=== PATIENT | male | born 1940 | race Caucasian/White ===

== ENCOUNTER 2018-03-26 21:15 | Inpatient (IN) | payer MEDICARE, BC ==
[2018-03-26 21:39] LABS: #Eosinphils 0.2 thou/uL (0.0-0.7); #Lymphocytes 1.9 thou/uL (1.20-3.40); #Monocytes 0.3 thou/uL (0.11-0.59); #Neutrophils 2.6 thou/uL (1.40-6.50); %Basophils 0.5 % (0.0-1.0); %Eosinophils 3.2 % (0.0-10.0); %Lymphocytes 38.8 % (21.0-51.0); %Monocytes 5.3 % (0.0-10.0); %Neutrophils 52.2 % (42.0-75.0); Hemoglobin 13.5 g/dL (14.0-18.0); Mean Corpuscular Volume 91.1 fl (80.0-94.0); Mean Platelet Volume 6.9 fL (7.4-10.4); Platelet Count 152 thou/uL (130-400); RBC Distribution Width 12.4 % (11.5-14.5); Red Blood Cell (RBC) Count 4.37 mill/uL (4.70-6.10); White Blood Cell (WBC) Count 4.9 thou/uL (4.8-10.8)
[2018-03-26 21:57] LABS: Anion Gap 13 mmol/L (10-20); BUN (Urea Nitrogen) 23 mg/dL (8.4-25.7); Calc. Creatinine Clearance 0 mL/min (70-130); Calcium 9.2 mg/dL (7.8-10.44); Carbon Dioxide 26 mmol/L (23-31); Chloride 105 mmol/L (98-107); Estimated GFR-MDRD 64; Glucose 158 mg/dL (83-110); Potassium 3.9 mmol/L (3.5-5.1); Sodium 140 mmol/L (136-145)
[2018-03-26 22:03] LABS: CKMB 3.6 ng/mL (0-6.6); Troponin I 0.025 ng/mL (< 0.028)
--- NOTE | 2018-03-26 22:38 | RAD ---
PORTABLE UPRIGHT FRONTAL CHEST RADIOGRAPH: 03/26/2018 HISTORY: Chest pain. Angina. COMPARISON: 01/02/2012 FINDINGS: Midline sternotomy wires are present. The cardiac silhouette appear enlarged. There is no pneumotho rax, pleural fluid, lobar consolidation, or alveolar edema. IMPRESSION: No acute findings. POS: [facility]
[2018-03-26] MEDS ORDERED: Diabetic Tussin 200 MG/10 ML UDCUP PO PRN (23:13)
[2018-03-26] MEDS ORDERED: Mag-Al 1200 mg/1200 mg/30 ML UDCUP PO PRN (23:13)
[2018-03-26] MEDS ORDERED: Acetaminophen 325 MG TAB PO PRN (23:13)
[2018-03-26] MEDS ORDERED: Calcium Carbonate 500 MG ChewTAB PO PRN (23:13)
[2018-03-26] MEDS ORDERED: hydrALAZINE 20 MG/ML VIAL SLOW IVP PRN (23:13)
[2018-03-26] MEDS ORDERED: Benzonatate 100 MG CAP PO PRN (23:13)
[2018-03-26] MEDS ORDERED: Senokot 8.6 MG TAB PO PRN ×2 (23:13)
[2018-03-26] MEDS ORDERED: Loratadine 10 MG TAB PO PRN (23:13)
[2018-03-26] MEDS ORDERED: Nitroglycerin 0.4 MG TAB (25 Tab Bottle) SL PRN (23:13)
[2018-03-26] MEDS ORDERED: traMADol HCl 50 MG TAB PO PRN (23:13)
[2018-03-26] MEDS ORDERED: cloNIDine 0.1 MG TAB PO PRN (23:13)
[2018-03-26] MEDS ORDERED: Ondansetron PF 4 MG/2 ML Vial IVP PRN (23:13)
[2018-03-26] MEDS ORDERED: Bisacodyl 5 MG TAB PO PRN ×2 (23:13)
[2018-03-27 00:58] VITALS: BMI 32.7
[2018-03-27 01:24] LABS: Troponin I 0.021 ng/mL (< 0.028)
--- NOTE | 2018-03-27 03:41 | HP ---
DATE OF ADMISSION: 03/26/2018 CHIEF COMPLAINT: Chest pain. PRIMARY CARE PHYSICIAN: Marlon Espinal M.D. HISTORY OF PRESENT ILLNESS: Mr. Fragoso is a very pleasant 77-year-old male with past medical history of coronary artery disease and prostate cancer who presented to the emergency room with above-mention ed complaint. History is mainly obtained by the patient himself and case has been discussed with [facility] room physician. Mr. Fragoso reports that he is a patient of Dr. [facility] and has regular foll ow up done and is compliant with his medications. He has had coronary artery bypass graft 8 years ag o and had a heart attack one week after that requiring stenting. Since then, he has had one more blo od vessel stented and was told that there is one more blood vessel that needed to be operated upon ve rsus needed a stent on, he is not sure. He reports that he was seen by Dr. Finn's office 2 week s ago and has had multiple echos done in the recent past. He has been stable on the medical manageme nt and was given option to get the last blood vessel stented; but is not sure if he really wants to g et it done or not. Today, he presented to the ER with complaints of chest pain which was quite severe in nature, located in the center of the chest. He describes it as a 7-8/10 in intensity and it was associated with merlene rtness of breath, palpitation, diaphoresis, and some nausea. He reports compliance to his medication s. He denies any other signs and symptoms or any other recent illnesses. He denies daily symptoms. He tried nitroglycerin at home which subsequently help to ease his pain. In the emergency room upon presentation, he was hemodynamically stable. His initial workup included cardiac enzymes, which were normal and 12-lead EKG, which also did not show any acute ST or T-wave ch anges. He was also given aspirin by the EMS and is now being admitted with a presumptive diagnosis o f chest pain, possibly unstable angina. PAST MEDICAL HISTORY: 1. History of coronary artery disease, status post CABG 8 years ago and stenting 1 week after that. 2. History of prostate cancer, status post surgery. 3. History of gastroesophageal reflux disease. 4. History of herniated disk, status post lower back surgery. PAST SURGICAL HISTORY: 1. History of lower back surgery. 2. Radical prostatectomy about 20 years ago. 3. History of EGD. 4. History of Yolanda fundoplication. 5. History of hernia repair. ALLERGIES: No known medication allergies. FAMILY HISTORY: Significant for dad having a lung cancer in his 15 and dying from it. He was a heav y smoker and drinker. His mother had pancreatic cancer when she was 71. One of his sisters is also a diabetic. SOCIAL HISTORY: He denies any drug, tobacco or alcohol abuse. CURRENT MEDICATIONS: Aspirin 81 mg daily, testosterone 100 mg IM every 28 days, Crestor 20 mg daily, Ranexa 1000 mg p.o. b.i.d., multivitamin daily, and Lexapro 20 mg daily. REVIEW OF SYSTEMS: The following complete review of systems was negative, unless otherwise mentioned in the HPI or below: Constitutional: Weight loss or gain, ability to conduct usual activities. Sk in: Rash, itching. Eyes: Double vision, pain. ENT/Mouth: Nose bleeding, neck stiffness, pain, te nderness. Cardiovascular: Palpitations, dyspnea on exertion, orthopnea. Respiratory: Shortness of breath, wheezing, cough, hemoptysis, fever or night sweats. Gastrointestinal: Poor appetite, abdom inal pain, heartburn, nausea, vomiting, constipation, or diarrhea. Genitourinary: Urgency, frequenc y, dysuria, nocturia. Musculoskeletal: Pain, swelling. Neurologic/Psychiatric: Anxiety, depressio n. Allergy/Immunologic: Skin rash, bleeding tendency. It is negative except for those mentioned in the history and physical. LABORATORY DATA: CBC is unremarkable. Serum chemistry shows blood sugar of 158. CK-MB and troponin within normal limit. BNP slightly elevated to 107.5. Chest x-ray by my review has no evidence to s uggest pulmonary infiltrate, edema or effusion. A 12-lead EKG reportedly is unremarkable. It is not available for my review at this time. PHYSICAL EXAMINATION: VITAL SIGNS: Blood pressure 114/61 with repeat blood pressure of 158/84, temperature 97.8, pulse of 66, respirations 18, and saturating 96% on room air. GENERAL: No acute distress, awake, alert, oriented x3. HEENT: Mucous membrane is moist and pink. No oropharyngeal exudate or erythema. Head is normocepha lic, atraumatic. Pupils are equal, reactive to light and accommodation. Extraocular movement intact . NECK: Supple without any lymphadenopathy, JVD or bruit. CHEST: Clear to auscultation without any wheezing, rales or rhonchi. CARDIOVASCULAR: Rate and rhythm is regular without any murmur, rubs or gallops. ABDOMEN: Soft, nontender, nondistended with positive bowel sounds. EXTREMITIES: Free of any cyanosis, clubbing, or edema. NEUROLOGIC: Nonfocal. SKIN: Free of any rashes or bruises. Feels warm and dry to touch. PSYCHIATRIC: Normal affect. IMPRESSION AND PLAN: 1. Chest pain, likely unstable angina. At this time, the patient might need to undergo the stenting of the remaining blood vessel that he reports is blocked. I do not have the results of his most rec ent cardiac catheterization or echocardiogram. We will request consultation from Dr. Finn's off ice for getting his results from his office as well as for further recommendations. At this time, he does not have any cardiac enzyme elevation and no changes in his EKG. We will hold off on any antip latelet or anticoagulant therapy at this time and continue to trend serial cardiac enzymes. He will be admitted to monitored unit under observation status. Further management will depend upon the ruby mmendations from Cardiology. At this time, we will avoid getting a stress test as he most likely is having unstable angina. We will continue him on a full dose of aspirin and restart his Crestor and R anexa. I am not sure why he not on any RAYMOND inhibitor or ARB as well as a beta-radha. Most likely he might be intolerant because of the low blood pressure. If his blood pressure permits; we will sta rt him on a low dose beta-radha. 2. History of coronary artery disease, status post coronary artery bypass graft and stenting. Once again, continue full dose aspirin and restart his statin. Continue Ranexa for now. If the blood pre ssure allows, please consider adding low dose beta-radha and RAYMOND inhibitor. The patient is relucta nt to get a repeat echocardiogram as it was recently done. We will try to get the results of his mos t recent echo from cardiology's office. 3. History of prostate cancer. He is currently in remission. 4. Add deep venous thrombosis and gastrointestinal prophylaxis. 5. Add p.r.n. medications. 6. Code status: FULL CODE. Discussed with the patient. DISPOSITION: Mr. Fragoso is currently being admitted for chest pain, possibly unstable angina. Furthe r management will depend upon his clinical course and Cardiology recommendations.
[2018-03-27 04:23] LABS: #Basophils 0.1 thou/uL (0.0-0.2); #Eosinphils 0.1 thou/uL (0.0-0.7); #Lymphocytes 1.4 thou/uL (1.20-3.40); #Monocytes 0.3 thou/uL (0.11-0.59); #Neutrophils 3.3 thou/uL (1.40-6.50); %Basophils 1.2 % (0.0-1.0); %Eosinophils 1.5 % (0.0-10.0); %Lymphocytes 27.6 % (21.0-51.0); %Monocytes 6.5 % (0.0-10.0); %Neutrophils 63.3 % (42.0-75.0); Mean Corpuscular Hemoglobin 31.7 pg (27.0-31.0); Mean Corpuscular Volume 90.6 fl (80.0-94.0); Mean Platelet Volume 6.7 fL (7.4-10.4); Platelet Count 142 thou/uL (130-400); RBC Distribution Width 12.4 % (11.5-14.5); White Blood Cell (WBC) Count 5.2 thou/uL (4.8-10.8)
[2018-03-27 04:31] LABS: Anion Gap 11 mmol/L (10-20); BUN (Urea Nitrogen) 21 mg/dL (8.4-25.7); Calc. Creatinine Clearance 101 mL/min (70-130); Calcium 9.3 mg/dL (7.8-10.44); Carbon Dioxide 24 mmol/L (23-31); Chloride 107 mmol/L (98-107); Estimated GFR-MDRD Greater than 90; Glucose 104 mg/dL (83-110); Potassium 4.1 mmol/L (3.5-5.1); Sodium 138 mmol/L (136-145)
[2018-03-27 05:01] LABS: Troponin I 0.014 ng/mL (< 0.028)
[2018-03-27] MEDS: Aspirin 325 mg Enteric Coated Tablet PO SCH (10:07)
[2018-03-27] MEDS: Famotidine 20 MG TAB PO SCH ×2 (10:08→21:08)
[2018-03-27] MEDS: Multivitamin W/ Minerals 1 TAB PO SCH (10:08)
[2018-03-27] MEDS: Enoxaparin Sodium 40 MG/0.4 ML SYRINGE SC SCH (10:08)
[2018-03-27] MEDS: Rosuvastatin 20 MG TAB PO SCH (10:09)
[2018-03-27] MEDS ORDERED: Iopamidol 370 76% 100 ML VIAL ONE (12:59)
[2018-03-27] MEDS ORDERED: Lidocaine 1% (PF) 30 ML VIAL ONE (16:28)
--- NOTE | 2018-03-27 16:47 | EKG ---
Test Reason : C/O CHEST PAIN Blood Pressure : / mmHG Vent. Rate : 049 BPM Atrial Rate : 049 BPM P-R Int : 292 ms QRS Dur : 100 ms QT Int : 484 ms P-R-T Axes : 070 -09 006 degrees QTc Int : 437 ms Marked sinus bradycardia with sinus arrhythmia with 1st degree A-V block Inferior infarct (cited on or before 14-APR-1997) Abnormal ECG When compared with ECG of 26-MAR-2018 21:22, (Unconfirmed) No significant change was found Confirmed by DR. Vitaliy BEAVERS ([id number]) on 03/27/2018 4:47:08 PM Referred By: FRANSICO Confirmed By:DR. Vitaliy BEAVERS
--- NOTE | 2018-03-27 17:29 | CON ---
DATE OF CONSULTATION: 03/27/2018 REASON FOR CONSULTATION: Recurrent chest pain. HISTORY OF PRESENT ILLNESS: Mr. Fragoso is a very pleasant 77-year-old gentleman whom I have seen and evaluated in the past. He has a history of CAD status post bypass surgery. He has been evaluated wi th last angio performed in 2011. He had severe stenosis of the distal LAD into the proximal portion of the diagonal branch. There is a diagonal branch that was not covered by bypass graft. He did hav e saphenous vein graft to the OM in addition to the saphenous vein graft to the right that was patent . MARIO to the LAD was also patent. I decided to treat Mr. Fragoso medically at that time. There was heavy calcification and would likely benefit from rotablader if ever needed. He has been treated medically over the last several years and has done well. Recently, he had an acu te onset of chest pain while at home. He states he was arguing with his . He took several nitro glycerins with some relief. By the time he got to the emergency room, his symptoms were resolved. H is CK and troponin were negative. His EKG was also felt to be nonspecific. After my initial evaluat ion, Mr. Fragoso felt he was good enough to go home given negative troponins and negative EKG. He then on getting ready for discharge had another episode of chest pain. He took his home nitroglycerin as his blood pressure decreased to 60/40. He became diaphoretic. He was given IV fluids with improvem ent. PAST MEDICAL HISTORY: As above including prostate cancer, acid reflux, herniated disk, Yolanda fundop lication, prostatectomy. ALLERGIES: None. SOCIAL HISTORY: No current tobacco or alcohol use. He is very active. HOME MEDICATIONS: Include aspirin, testosterone, multivitamin, Lexapro, Ranexa, Crestor. REVIEW OF SYSTEMS: Ten-point review of systems is reviewed and as above, otherwise negative. PHYSICAL EXAMINATION: GENERAL: Patient is a pleasant male who is in no acute distress. The patient appears his stated age . VITAL SIGNS: Blood pressure 130/54, pulse 84, temperature 97.8. NEUROLOGIC: The patient is alert and oriented times 3 with no focal neurologic deficits. HEENT: Sclerae without icterus. Mouth has moist mucous membranes with normal pallor. NECK: No JVD. Carotid upstroke brisk. No bruits bilaterally. LUNGS: Clear to auscultation with unlabored respirations. BACK: No scoliosis or kyphosis. CARDIAC: Regular rate and rhythm with normal S1 and S2. No S3 or S4 noted. No significant rubs, mu rmurs, thrills, or gallops noted throughout the precordium. PMI is not displaced. There is no eliceo ternal heave. ABDOMEN: Soft, nontender, nondistended. No peritoneal signs present. No hepatosplenomegaly. No ab normal striae. EXTREMITIES: 2+ femoral and 2+ dorsalis pedis pulses. No cyanosis, clubbing, or edema. SKIN: No gross abnormalities. PERTINENT LABORATORY DATA: Hemoglobin 14, white blood cell count 5.2, platelet count of 142, and cre atinine 0.82. IMPRESSION: 1. Recurrent chest pain. 2. Coronary artery disease. 3. Status post bypass surgery. RECOMMENDATIONS: At this point, I would recommend coronary angiography with possible PCI. I discus sed the procedure in full detail with [place]. The risks of the procedure were also discussed. Th e risks of the procedure include but are not limited to the following: , stroke, [place], need for e mergency surgery, loss of limb, bleeding, and infection, as well as a reaction to the dye causing kid cindy failure and needing long-term dialysis. I also discussed the risks of PCI to include all of the above including coronary dissection and perforation in addition to acute stent thrombosis and resteno sis. All questions answered. Given the above, the patient agreed to proceed with procedure. Furthe r recommendations depending the above.
[2018-03-27] MEDS ORDERED: Nitroglycerin 0.4 MG TAB (25 Tab Bottle) SL PRN (17:37)
[2018-03-27] MEDS ORDERED: traMADol HCl 50 MG TAB PO PRN (17:37)
[2018-03-27] MEDS ORDERED: Acetaminophen/Codeine 30-300mg Tablet PO PRN ×2 (17:37)
[2018-03-27] MEDS ORDERED: Sodium Chloride 0.9% 200 ML IV PRN (17:45)
--- NOTE | 2018-03-27 18:54 | PDOC.PN ---
- Subjective Encounter Start Date: 03/27/18 Encounter Start Time: 09:45 Subjective: pt up in bed no complains - Objective Vital Signs & Weight: Vital Signs (12 hours) Temp Pulse Resp BP BP Pulse Ox 03/27/18 18:00 97.9 F 72 18 146/74 H 146/74 H 97 I&O: 03/26/18 03/27/18 03/28/18 06:59 06:59 06:59 Intake Total 250 Balance 250 Result Diagrams: 03/27/18 04:00 03/27/18 04:00 Phys Exam - Physical Examination HEENT: PERRLA, moist MMs, sclera anicteric, TM's clear, oral pharynx no lesions , 2+ tonsils Neck: no nodes, no JVD, supple, full ROM Respiratory: no wheezing, no rales, no rhonchi, wheezing present, clear to auscultation bilateral Cardiovascular: RRR, no significant murmur, no rub, gallop, irregular Gastrointestinal: soft, non-tender, no distention, positive bowel sounds Musculoskeletal: no edema, pulses present, edema present Dx/Plan - Plan 1) unstable angina 2) CAD 3) HTn 4) prostate cancer plan: pt's trop were negative, no significant ekg changes. Pt on my evaluation did not have any chest pain but nurse called me and stated he was having chest pressure. will continue pt's meds. pt will go for cardiac cath. * . Review of Systems - Review of Systems Eyes: negative: Pain, Vision Change, Conjunctivae Inflammation, Eyelid Inflammation, Redness, Other ENT: negative: Ear Pain, Ear Discharge, Nose Pain, Nose Discharge, Nose Congestion, Mouth Pain, Mouth Swelling, Throat Pain, Throat Swelling, Other Respiratory: negative: Cough, Dry, Shortness of Breath, Hemoptysis, SOB with Excertion, Pleuritic Pain, Sputum, Wheezing Cardiovascular: negative: chest pain, palpitations, orthopnea, paroxysmal nocturnal dyspnea, edema, light headedness, other Gastrointestinal: negative: Nausea, Vomiting, Abdominal Pain, Diarrhea, Constipation, Melena, Hematochezia, Other Genitourinary: negative: Dysuria, Frequency, Incontinence, Hematuria, Retention , Other - Medications/Allergies Allergies/Adverse Reactions: Allergies Allergy/AdvReac Type Severity Reaction Status Date / Time No Known Drug Allergies Allergy Verified 03/27/18 00:44 Medications: Current Medications Acetaminophen (Tylenol) 650 mg PO Q4H PRN PRN Reason: Headache/Fever or Pain Acetaminophen/Codeine Phosphate (Tylenol #3) 1 tab PO Q4H PRN PRN Reason: Mild Pain (1-3) Acetaminophen/Codeine Phosphate (Tylenol #3) 2 tab PO Q4H PRN PRN Reason: Moderate Pain (4-6) Al Hydroxide/Mg Hydroxide (Maalox) 30 ml PO Q6H PRN PRN Reason: Heartburn or Indigestion Aspirin (Ecotrin) 325 mg PO DAILY [facility] Last Admin: 03/27/18 10:07 Dose: Not Given Benzonatate (Tessalon) 100 mg PO Q4H PRN PRN Reason: Cough Bisacodyl (Dulcolax) 10 mg PO DAILYPRN PRN PRN Reason: Constipation Calcium Carbonate (Tums) 1,000 mg PO Q4H PRN PRN Reason: Heartburn or Indigestion Clonidine (Catapres) 0.1 mg PO Q4H PRN PRN Reason: Systolic BP > 160 Enoxaparin Sodium (Lovenox) 40 mg SC 0900 [facility] Last Admin: 03/27/18 10:08 Dose: Not Given Escitalopram Oxalate (Lexapro) 20 mg PO HS [facility] Famotidine (Pepcid) 20 mg PO BID [facility] Last Admin: 03/27/18 10:08 Dose: Not Given Guaifenesin (Robitussin Sf) 200 mg PO Q4H PRN PRN Reason: Cough Hydralazine HCl (Apresoline) 10 mg SLOW IVP Q4H PRN PRN Reason: Systolic BP > 170 Sodium Chloride (Normal Saline 0.9%) 200 mls @ 0 mls/hr IV ONE PRN; As Directed PRN Reason: Bolus PRN SBP < 90 mm Hg Stop: 03/28/18 03:46 Iron/Minerals/Multivitamins (Theragran M) 1 tab PO DAILY [facility] Last Admin: 03/27/18 10:08 Dose: Not Given Loratadine (Claritin) 10 mg PO DAILYPRN PRN PRN Reason: Sinus Symptoms Nitroglycerin (Nitrostat) 0.4 mg SL Q5MIN PRN PRN Reason: Chest Pain Last Admin: 03/27/18 14:55 Dose: 0.4 mg Nitroglycerin (Nitrostat) 0.4 mg SL Q5MIN PRN PRN Reason: Chest Pain Ondansetron HCl (Zofran) 4 mg IVP Q6H PRN PRN Reason: Nausea/Vomiting Ranolazine (Ranexa) 1,000 mg PO BID [facility] Last Admin: 03/27/18 10:08 Dose: Not Given Rosuvastatin Calcium (Crestor) 20 mg PO DAILY [facility] Last Admin: 03/27/18 10:09 Dose: Not Given Senna (Senokot) 2 tab PO HSPRN PRN PRN Reason: Constipation Testosterone Cypionate (Depo-Testosterone) 100 mg IM Q28D [facility] Tramadol HCl (Ultram) 50 mg PO Q6H PRN PRN Reason: Moderate Pain (4-6)
[2018-03-27] MEDS ORDERED: Escitalopram Oxalate 20 mg Tablet PO SCH (21:00)
[2018-03-28 00:20] VITALS: TEMP 98.1
[2018-03-28] MEDS: Enoxaparin Sodium 40 MG/0.4 ML SYRINGE SC SCH (08:05)
[2018-03-28] MEDS: Aspirin 325 mg Enteric Coated Tablet PO SCH (08:05)
[2018-03-28] MEDS: Multivitamin W/ Minerals 1 TAB PO SCH (08:05)
[2018-03-28] MEDS: Rosuvastatin 20 MG TAB PO SCH (08:06)
[2018-03-28] MEDS: Famotidine 20 MG TAB PO SCH (08:06)
[2018-03-28 08:18] VITALS: BP 119/65
--- NOTE | 2018-03-28 09:24 | PRG ---
DATE OF SERVICE: 03/28/2018 SUBJECTIVE: Mr. Fragoso is doing well. No recurrent episodes of chest pain. PHYSICAL EXAMINATION: VITAL SIGNS: Blood pressure 119/65, pulse 60, temperature 98.1. LUNGS: Clear to auscultation. HEART: Regular rate and rhythm. ABDOMEN: Soft, nontender and nondistended. EXTREMITIES: No edema. IMPRESSION: 1. Angina. 2. Severe coronary artery disease. 3. Status post bypass surgery. RECOMMENDATIONS: I again reviewed Mr. Fragoso till this morning. There are multiple areas of potentia l source of his current pain. Most areas are small and not amenable for percutaneous intervention. I did review LAD once again. This is felt to be moderate in nature. He has severe disease present o f the ostium of the LAD with an uncovered diagonal branch. At this point, we will continue with medi mary ellen therapy. If he continues to have symptoms, may consider workup in [place] for atherectomy to the ostium of the LAD. Again, he does have severe small vessel disease, presence of ramus branch, OM br anch, circumflex artery in addition to diagonal branches. It would be okay from my standpoint to dis charge home with close outpatient followup.
--- NOTE | 2018-03-28 13:13 | DIS ---
DATE OF ADMISSION: 03/27/2018 DATE OF DISCHARGE: 03/28/2018 DISCHARGE DIAGNOSES: 1. Angina. 2. Severe coronary artery disease, status post bypass. 3. Prostate cancer. HOSPITAL COURSE: The patient is a very pleasant 77-year-old male, [facility]. Patient had troponins x3, which were negative. The patient was seen by Angie alfonso given his history of coronary artery disease and bypass. No significant EKG changes either. Aria hubbard was initially discharged by Cardiology. However, upon discharge, the patient started having s ignificant chest discomfort, and at that time, the patient was given a nitro and dropped his blood pr essures. The patient recovered without any issues. At that time, Cardiology was reconsulted and mariposa acosta underwent a cardiac catheterization by Cardiology. Cardiac catheterization did not require any intervention. Catheterization indicated most areas are small and not amenable for percutaneous inter vention. Recommended that the patient has severe disease of the ostium of the LAD with an uncovered diagonal branch. Recommended to continue medical therapy. If patient's symptoms continue to worsen, they would recommend him to going to [place] for atherectomy to the ostium of the LAD. The patient will be discharged home. FOLLOWUP: Follow up with PCP and Cardiology as outpatient. DISCHARGE MEDICATIONS: His medications are as following, 1. Aspirin 81 mg daily. 2. Crestor 20 mg daily. 3. Ranexa 1000 mg p.o. b.i.d. 4. Citalopram 20 mg at bedtime. 5. Multivitamin 1 p.o. daily. PHYSICAL EXAMINATION: VITAL SIGNS: Temperature of 98.1, 60, 20, 95% on room air, blood pressure 119/65. GENERAL: Awake, alert, oriented x3, does not appear in distress. CARDIOVASCULAR: S1 and S2 present. No murmurs, rubs, or gallops. LUNGS: Clear to auscultation, no rhonchi or wheezes noted. ABDOMEN: Soft, nontender. Bowel sounds are positive x2. EXTREMITIES: No edema.
--- NOTE | 2018-05-12 15:30 | EKG ---
Test Reason : Blood Pressure : / mmHG Vent. Rate : 055 BPM Atrial Rate : 055 BPM P-R Int : 312 ms QRS Dur : 108 ms QT Int : 462 ms P-R-T Axes : 083 -06 -17 degrees QTc Int : 441 ms Poor data quality, interpretation may be adversely affected Sinus bradycardia with sinus arrhythmia with 1st degree A-V block Abnormal ECG Confirmed by RAF ARMSTRONG ([id number]), index editor SANGEETA MENDOZA ([id number]) on 05/12/2018 3:30:44 PM Referred By: Confirmed By:RAF ARMSTRONG
== END 2018-03-28 11:23 | disposition home or self-care (01) | DRG 287 ==
LOC: ERS 21:15 → 2SW 22:57 → OBSVTOIN 03-27 15:39
PROVIDERS: ADMIT Internal Medicine; ATTEND Internal Medicine
PROC: 4A023N7 Measurement of Cardiac Sampling and Pressure, Left Heart, Percutaneous Approach (ICD-10-PCS; principal; 2018-03-27)
PROC: B2111ZZ Fluoroscopy of Multiple Coronary Arteries using Low Osmolar Contrast (ICD-10-PCS; 2018-03-27)
PROC: B2151ZZ Fluoroscopy of Left Heart using Low Osmolar Contrast (ICD-10-PCS; 2018-03-27)
DX: I25.110 Atherosclerotic heart disease of native coronary artery with unstable angina pectoris (principal); Z85.46 Personal history of malignant neoplasm of prostate; Z95.1 Presence of aortocoronary bypass graft; K21.9 Gastro-esophageal reflux disease without esophagitis; Z90.79 Acquired absence of other genital organ(s); Z79.82 Long term (current) use of aspirin; Z79.899 Other long term (current) drug therapy
CPT/HCPCS: 36415; 71045; 76942; 80048; 82553; 83880; 84484; 85025; 93005; 93010; 93455; 93798; 94760; C1769; J1644; J1650; J2001

== ENCOUNTER 2018-04-01 21:37 | Observation (INO) | payer MEDICARE, BC ==
[2018-04-01 22:14] LABS: #Lymphocytes 1.1 thou/uL (1.20-3.40); #Monocytes 0.9 thou/uL (0.11-0.59); %Basophils 0.1 % (0.0-1.0); %Eosinophils 0.3 % (0.0-10.0); %Lymphocytes 9.9 % (21.0-51.0); %Monocytes 8.1 % (0.0-10.0); %Neutrophils 81.6 % (42.0-75.0); Hemoglobin 12.8 g/dL (14.0-18.0); Mean Corpuscular HGB CONC 34.9 g/dL (32.0-36.0); Mean Corpuscular Hemoglobin 31.4 pg (27.0-31.0); Mean Platelet Volume 6.5 fL (7.4-10.4); Platelet Count 226 thou/uL (130-400); RBC Distribution Width 12.2 % (11.5-14.5); Red Blood Cell (RBC) Count 4.08 mill/uL (4.70-6.10); White Blood Cell (WBC) Count 11.1 thou/uL (4.8-10.8)
--- NOTE | 2018-04-01 22:21 | RAD ---
UPRIGHT PORTABLE CHEST ONE VIEW: HISTORY: A 77-year-old male with a history of chest pain for one week. COMPARISON: 03/26/2018 FINDINGS: There is cardiomegaly. There are some minimal linear and parenchymal changes in both bases, slightly more marked than on the prior study, raising concern for some minimal subsegmental atelectasis. No confluent pneumonia or overt edema. Atherosclerosis of the aorta. IMPRESSION: Postoperative midline sternotomy and cardiomegaly. Minimal linear and parenchymal changes in the radha g bases, new from prior study, probably mild subsegmental atelectasis. No evidence of pneumonia, kaylin ma, or other acute process. POS: [facility]
[2018-04-01 22:39] LABS: ALT (SGPT) 69 U/L (8-55); AST (SGOT) 17 U/L (5-34); Albumin 3.6 g/dL (3.4-4.8); Alkaline Phosphatase 87 U/L (40-150); Anion Gap 13 mmol/L (10-20); BUN (Urea Nitrogen) 16 mg/dL (8.4-25.7); Bilirubin, Total 0.9 mg/dL (0.2-1.2); Calc. Creatinine Clearance 0 mL/min (70-130); Calcium 9.1 mg/dL (7.8-10.44); Carbon Dioxide 24 mmol/L (23-31); Chloride 100 mmol/L (98-107); Estimated GFR-MDRD 78; Glucose 119 mg/dL (83-110); Lipase 14 U/L (8-78); Potassium 4.2 mmol/L (3.5-5.1); Protein, Total 6.6 g/dL (5.8-8.1); Sodium 133 mmol/L (136-145)
[2018-04-01 22:44] LABS: CKMB 0.7 ng/mL (0-6.6); Troponin I 0.017 ng/mL (< 0.028)
--- NOTE | 2018-04-01 22:56 | ULT ---
GALLBLADDER ULTRASOUND: HISTORY: A 77-year-old male with a history of abdominal pain. FINDINGS: Liver echogenicity is within normal limits. The gallbladder is dilated and markedly distended with e xtensive sludge and possibly additional small stones. There is some gallbladder wall thickening and some pericholecystic fluid. Very positive Morgan sign. The common bile duct is 0.5 cm. The visuali zed right kidney and pancreas are unremarkable. IMPRESSION: Very markedly abnormal gallbladder, which is distended and dilated, filled with sludge and possibly s mall stones, with gallbladder wall thickening and pericholecystic fluid and a positive Morgan sign, e vident for acute cholecystitis. POS: [facility]
[2018-04-01] MEDS ORDERED: Piperacillin/Tazobactam 3.375 GM VIAL ONE (23:15)
[2018-04-01] MEDS ORDERED: Fentanyl 100 MCG/2 ML VIAL ONE (23:55)
[2018-04-02 00:04] LABS: Bilirubin Small (Negative); Blood, Urine Negative (Negative); Clarity CLOUDY (Clear); Glucose, Urine (Dipstick) Negative (Negative); Leukocyte Small (Negative); Nitrite Positive (Negative); Protein, Urine (Dipstick) 30 mg/dL (Neg-Trace); Specific Gravity, Urine 1.037 (1.002-1.036); pH, Urine 5.5 (5.0-9.0)
[2018-04-02 00:07] LABS: Bacteria/HPF None Seen HPF (None Seen)
[2018-04-02 00:09] LABS: Pathc Cast-AUWi Flag 11.05 (0-2.49)
[2018-04-02 00:20] LABS: Hyaline Casts/LPF 0-3 HYALINE CAST LPF (0-3 Hyaline); Other Casts/LPF None Seen LPF (0-3 Hyaline); Oval Fat Bodies/HPF None Seen HPF (None Seen); RBC/HPF 0-3 HPF (0-3); Renal Epithelial None Seen HPF (0-3); Sperm/HPF None Seen HPF (None Seen); Transitional Epithelial NONE SEEN HPF (0-3); Trichomonas/HPF None Seen HPF (None Seen); Yeast-All Forms None Seen HPF (None Seen)
[2018-04-02 01:37] VITALS: BMI 32.2
[2018-04-02] MEDS ORDERED: Lactated Ringer's 1,000 ML IV SCH ×2 (01:45→07:04)
[2018-04-02] MEDS: Fentanyl 100 MCG/2 ML VIAL SLOW IVP PRN ×3 (02:09→07:56)
[2018-04-02] MEDS ORDERED: Piperacillin/Tazobactam 3.375 GM in Sodium Chloride 0.9% 100 ML IVPB SCH (06:00)
[2018-04-02] MEDS ORDERED: Ketorolac Tromethamine 30 MG/ML VIAL IVP PRN (07:02)
[2018-04-02] MEDS ORDERED: Acetaminophen 1,000 MG in Premix Bag 1 BAG IVPB PRN (07:02)
[2018-04-02] MEDS ORDERED: Ketorolac Tromethamine 30 MG/ML VIAL IVP SCH (07:30)
[2018-04-02] MEDS ORDERED: Acetaminophen 1,000 MG in Premix Bag 1 BAG IVPB SCH (07:30)
[2018-04-02] MEDS: Carvedilol 3.125 MG TAB PO SCH ×2 (07:55→21:13)
[2018-04-02] MEDS ORDERED: Scopolamine 1.5 mg/72 hour Patch TD SCH (08:00)
--- NOTE | 2018-04-02 08:21 | HP ---
HISTORY OF PRESENT ILLNESS: Mr. Wilber Fragoso is a 77-year-old male patient who presented with epi gastric pain and chest pain last week and was admitted and evaluated by Dr. Finn. The patient h ad a coronary artery bypass graft x4 vessels in 2008, had a post-bypass myocardial infarction requiri ng stenting. Dr. Finn performed a left heart catheterization last week and found a small vessel disease in the ostial LAD lesion that had been unchanged since 2011. Patient now presents to the em ergency room with epigastric right upper quadrant pain, guarding, rebound. An ultrasound reveals jessica nges of acute cholecystitis with multiple gallstones, sonographic positive Morgan's sign, gallbladder thickening, pericholecystic fluid and a very positive Morgan's sign. Bile duct was 5 mm. Liver fun ction test is essentially normal. Renal function is normal. Base met normal. White count 11, hemog lobin 12. The patient has acute cholecystitis and is in need of a laparoscopic cholecystectomy. I personally c alled Dr. Finn today who agreed and stated that he is slightly increased risk from a cardiac sta ndpoint, but there is nothing from a cardiac standpoint that could be done preoperatively to decrease his risk and he recommended proceeding with laparoscopic cholecystectomy with the observation shannan sampson. The patient understands the risk of infection, bleeding, visceral biliary injury, increase of c ardiac problems and consents. ALLERGIES: None. TOBACCO: None. ALCOHOL: Rarely. HOME MEDICATIONS: Coreg 12.5 mg p.o. b.i.d., Ranexa 1000 mg b.i.d., aspirin 81 mg a day, Crestor 20 mg a day, testosterone 100 mg IM q.28 days. PAST SURGICAL HISTORY: Coronary artery bypass grafting in 2008 x4 vessels. Post-bypass myocardial i nfarction with stent placement. Cardiac catheterization last week, Dr. Finn with the above desc ribed findings. In 1996, prostatectomy, lower midline incision. In 2007, lumbar surgery, I banded h emorrhoids in my office probably 10 years ago. SOCIAL HISTORY: The patient is a retired maintenance work. He is . REVIEW OF SYSTEMS: [employer] [place], noncontributory. PAST MEDICAL HISTORY: Coronary artery disease, stable; macular degeneration, sees Dr. Mcneal for injec tions periodically. He does not have chronic back pain. PHYSICAL EXAMINATION: GENERAL: 5 foot 8, 212 pounds, 32 BMI. VITAL SIGNS: 98.8, 62, 18, 110/70. HEENT: Unremarkable. LUNGS: Clear to auscultation. CARDIAC: Regular rate and rhythm without murmur or gallop. ABDOMEN: Soft, tenderness in right upper quadrant and epigastrium. Positive Morgan's sign. Sternot alton scar per above history, prostatectomy scar supraumbilical midline vertical per above prostatectom y history. EXTREMITIES: Unremarkable. No ankle edema, palpable pulses. LABORATORY DATA: White count 11, hemoglobin 12, sodium 133, potassium 4.2, BUN 16, creatinine 0.93, glucose 119. Bilirubin 0.9, AST and ALT are 17 and 69 respectively. Alkaline phosphatase 87, lipase 14. Radiological survey as noted above. ASSESSMENT AND PLAN: 1. Acute cholecystitis. I have recommend laparoscopic video cholecystectomy. Risk and benefits as described above. Questions answered. 2. Coronary artery disease, stable with slightly elevated risk from a coronary standpoint, but I hav e discussed with Dr. Finn and the patient is cleared for cholecystectomy without further cardiol ogy evaluation. Dr. Finn will be consulted, should the patient have any problems postoperativel y. Expect discharge home tomorrow. 2. Macular degeneration followed Dr. Mcneal.
[2018-04-02] MEDS ORDERED: Carvedilol 3.125 MG TAB PO SCH (09:00)
[2018-04-02] MEDS ORDERED: Ondansetron HCl/PF 4 MG/2 ML Vial ONE ×2 (11:54→14:52)
[2018-04-02] MEDS ORDERED: Lidocaine 1% PF 5 ML VIAL ONE (11:54)
[2018-04-02] MEDS ORDERED: ePHEDrine/0.9% NaCl/PF SYRINGE 50 mg/10 ml ONE (11:54)
[2018-04-02] MEDS ORDERED: Dexamethasone 20 MG/5 ML VIAL ONE (11:54)
[2018-04-02] MEDS ORDERED: PROPOFOL 200 MG/20 ML VIAL ONE (11:54)
[2018-04-02] MEDS ORDERED: Glycopyrrolate 0.2 MG/ML 5 ML SYRINGE ONE (11:54)
[2018-04-02] MEDS ORDERED: Fentanyl 100 MCG/2 ML VIAL ONE ×3 (13:59→14:14)
[2018-04-02] MEDS ORDERED: Levofloxacin 500 mg/D5W 100 ml Premix Bag ONE (14:00)
[2018-04-02] MEDS ORDERED: Ketorolac Tromethamine 30 MG/ML VIAL ONE (14:00)
[2018-04-02] MEDS ORDERED: Bupivacaine HCl 0.5%/Epinephrine 1:200,000/PF 30 ml Vial ONE (14:12)
[2018-04-02] MEDS ORDERED: HYDROmorphone 0.5 MG/0.5 ML SYRINGE ONE (14:14)
[2018-04-02] MEDS ORDERED: Acetaminophen 500 MG TAB PO PRN (15:35)
[2018-04-02] MEDS ORDERED: traMADol HCl 50 MG TAB PO PRN ×2 (15:35)
[2018-04-02] MEDS ORDERED: Ondansetron ODT 8 MG TAB SL PRN (15:38)
[2018-04-02] MEDS ORDERED: Ondansetron ODT 8 MG TAB PO PRN (15:38)
[2018-04-02] MEDS ORDERED: Ondansetron ORAL SOLN. 4 MG/5 ML UDCUP PO PRN (15:38)
[2018-04-02] MEDS ORDERED: Ondansetron ODT 4 MG TAB PO PRN ×2 (15:38)
[2018-04-02] MEDS: Aspirin 81 mg Enteric Coated Tablet PO SCH (19:48)
[2018-04-02] MEDS: Lactated Ringer's 1,000 ML IV SCH ×2 (19:48→23:38)
[2018-04-02] MEDS ORDERED: Escitalopram Oxalate 20 mg Tablet PO SCH (21:00)
[2018-04-02] MEDS ORDERED: Enoxaparin Sodium 40 MG/0.4 ML SYRINGE SC SCH (21:00)
--- NOTE | 2018-04-02 22:02 | OP ---
PREOPERATIVE DIAGNOSES: Acute cholecystitis, gangrenous cholecystitis, cholelithiasis. POSTOPERATIVE DIAGNOSES: Acute cholecystitis, gangrenous cholecystitis, cholelithiasis. PROCEDURE: Laparoscopic video cholecystectomy. SURGEON: Kurt Tilley M.D. ANESTHESIA: General. Local 0.5% Marcaine with epinephrine 30 mL. PROCEDURE IN DETAIL: Patient was taken to the operating room where under general anesthesia, abdomen was prepared with ChloraPrep, draped in routine fashion. Local anesthetic infiltrated into the skin and subcutaneous tissue about each port site. Infraumbilical incision made, pneumoperitoneum to 15 mmHg obtained with the Veress needle, replacing it with a 5-port with laparoscope inserted. Right shah bxiphoid incision made and 11-port placed. Right subcostal incisions made, midclavicular and anterio r axillary lines with 5 ports placed. Gallbladder was acutely inflamed, walled off by the omentum we re carefully stripped down through its inflammatory adhesions, identifying the fundus grasped and it evacuating contents and occluding with a grasper and reflected the cephalad. Careful dissection of t he inflammatory adhesions, identifying the infundibulum, cystic artery and duct dissected free. Crit ical view obtained. Cystic artery and duct doubly clipped proximally, divided, and gallbladder disse cted free from liver bed obtaining good hemostasis prior to division of final peritoneal attachments. Gallbladder and contents removed through an Endobag. Subxiphoid fascia approximated with 0-Vicryl [id number] suture GraNee needle. Irrigant and pneumoperitoneum evacuated after ensuring good he mostasis with the cautery. All skin incisions irrigated and approximated with interrupted subdermal 4-0 Monocryl and DermaGlue applied.
[2018-04-03 07:30] LABS: #Lymphocytes 0.7 thou/uL (1.20-3.40); #Monocytes 0.6 thou/uL (0.11-0.59); #Neutrophils 12.9 thou/uL (1.40-6.50); %Eosinophils 0.3 % (0.0-10.0); %Lymphocytes 4.7 % (21.0-51.0); %Monocytes 4.5 % (0.0-10.0); %Neutrophils 90.5 % (42.0-75.0); Hemoglobin 12.9 g/dL (14.0-18.0); Mean Corpuscular HGB CONC 34.2 g/dL (32.0-36.0); Mean Corpuscular Volume 90.6 fl (80.0-94.0); Mean Platelet Volume 6.4 fL (7.4-10.4); Platelet Count 240 thou/uL (130-400); Red Blood Cell (RBC) Count 4.16 mill/uL (4.70-6.10); White Blood Cell (WBC) Count 14.3 thou/uL (4.8-10.8)
[2018-04-03 07:49] LABS: ALT (SGPT) 69 U/L (8-55); AST (SGOT) 45 U/L (5-34); Albumin 3.3 g/dL (3.4-4.8); Alkaline Phosphatase 81 U/L (40-150); Anion Gap 10 mmol/L (10-20); BUN (Urea Nitrogen) 14 mg/dL (8.4-25.7); Bilirubin, Total 0.7 mg/dL (0.2-1.2); Calc. Creatinine Clearance 98 mL/min (70-130); Carbon Dioxide 26 mmol/L (23-31); Chloride 102 mmol/L (98-107); Estimated GFR-MDRD 89; Globulin 3.2 g/dL (2.4-3.5); Glucose 109 mg/dL (83-110); Potassium 4.5 mmol/L (3.5-5.1); Protein, Total 6.5 g/dL (5.8-8.1); Sodium 133 mmol/L (136-145)
[2018-04-03] MEDS: Carvedilol 3.125 MG TAB PO SCH (08:10)
[2018-04-03] MEDS: Aspirin 81 mg Enteric Coated Tablet PO SCH (08:10)
[2018-04-03] MEDS ORDERED: Polyethylene Glycol 3350 17 GM Packet PO SCH (09:00)
[2018-04-03] MEDS ORDERED: Rosuvastatin 20 MG TAB PO SCH (09:00)
[2018-04-03] MEDS ORDERED: Vit A,C & E/Lutein/Minerals Tablet PO SCH (09:00)
[2018-04-03 12:28] VITALS: BP 94/56; TEMP 98.1
--- NOTE | 2018-04-03 15:53 | PRG ---
DATE OF SERVICE: 04/03/2018 SUBJECTIVE: Mr. Fragoso is doing well today. He is tolerating his diet. His liver function tests and CBC are normal. PHYSICAL EXAMINATION: VITAL SIGNS: Temperature 98.1 degrees, 72, 18, 94/66. HEAD, EARS, EYES, NOSE, AND THROAT: Unremarkable. LUNGS: Clear to auscultation. CARDIAC: Regular rate and rhythm without murmur or gallop. ABDOMEN: Soft, nontender. Surgical site, laparoscopic incisions clean and dry. LABORATORY DATA: Hemoglobin 12, white count 14. Basic metabolic profile normal. ASSESSMENT AND PLAN: Doing well after laparoscopic cholecystectomy for gangrenous cholecystitis. He has stable coronary artery disease. He is discharged home to resume his home medications. He will take Tylenol and ibuprofen for pain. He is having minimal discomfort. Diet as tolerated. Activity as tolerated.
--- NOTE | 2018-04-03 21:29 | DIS ---
DATE OF ADMISSION: 04/02/2018 DATE OF DISCHARGE: 04/03/2018 DISCHARGE DIAGNOSES: 1. Acute cholecystitis, gangrenous, cholelithiasis 2. Coronary artery disease, stable. PROCEDURES: Laparoscopic video cholecystectomy. HISTORY: A 77-year-old male with a history of coronary artery disease who presents to the emergency room with acute cholecystitis, positive Morgan sign, positive sonographic Morgan signs of gallstones and pericholecystic edema. He has a history of coronary bypass grafting in 2008 four vessels, post-b ypass myocardial infarction with stent placement. He presented with upper abdominal pain, chest pain last week and cardiac catheterization. Dr. Finn revealed small vessel disease, ostial LAD lesi on unchanged since 2011. The patient was discussed with Dr. Finn who felt [facility] was [facility], we proceeded with laparoscopic cholecystectomy. Findings of gangrenous gallbladder . Postop, he was observed overnight, did well without chest pain. He is discharged home with follow up in my office in 2-3 weeks. Diet and activity as tolerated. He will resume his home medications consisting of Coreg 12.5 mg b.i.d., multivitamins a day, Ranexa 1000 mg b.i.d., aspirin 81 mg a day, Crestor 20 mg daily, testosterone daily.
[2018-04-07] MEDS ORDERED: Ibuprofen 600 MG TAB PO PRN (09:00)
== END 2018-04-03 15:20 | disposition home or self-care (01) ==
LOC: ERS 21:37 → SURG A 04-02 00:20
PROVIDERS: ADMIT Specialist; ATTEND Specialist
PROC: 0FT44ZZ Resection of Gallbladder, Percutaneous Endoscopic Approach (ICD-10-PCS; principal; 2018-04-02)
DX: K80.00 Calculus of gallbladder with acute cholecystitis without obstruction (principal); I25.10 Atherosclerotic heart disease of native coronary artery without angina pectoris; I25.2 Old myocardial infarction; Z79.82 Long term (current) use of aspirin; Z79.899 Other long term (current) drug therapy; Z95.1 Presence of aortocoronary bypass graft; Z95.5 Presence of coronary angioplasty implant and graft; Z87.891 Personal history of nicotine dependence
CPT/HCPCS: 47562; 71045; 76705; 80053 ×2; 81003; 81015; 82553; 83690; 83735; 83880; 84484; 85025 ×2; 85379; 88304; 93005; 96361 ×2; 96365; 96367; 96372; 96375 ×2; 96376; 99285; G0378; 36415; J0131; J0670; J1100; J1170; J1650; J1885; J1956; J2001; J2405; J2543; J2704; J3010; J7050

== ENCOUNTER 2022-04-23 22:17 | Emergency (ER) | payer MEDICARE, BC ==
[2022-04-24] MEDS ORDERED: Bacitracin 1 PK ONE (01:17)
== END 2022-04-24 01:23 | disposition home or self-care (01) ==
LOC: ERS 22:17
DX: S02.2XXA Fracture of nasal bones, initial encounter for closed fracture (principal); S01.81XA Laceration without foreign body of other part of head, initial encounter; I25.10 Atherosclerotic heart disease of native coronary artery without angina pectoris; W18.30XA Fall on same level, unspecified, initial encounter; W22.8XXA Striking against or struck by other objects, initial encounter
CPT/HCPCS: 12013; 70450; 70486; 72125

== ENCOUNTER 2022-09-07 08:17 | Outpatient (CLI) | payer MEDICARE, BC ==
[2022-09-07] MEDS ORDERED: Iopamidol 370 76% 100 ML VIAL ONE (14:26)
== END 2022-09-07 08:18 | disposition home or self-care (01) ==
LOC: CT 08:17
PROVIDERS: ATTEND Physician Assistant
DX: R79.1 Abnormal coagulation profile (principal); R91.8 Other nonspecific abnormal finding of lung field; I51.7 Cardiomegaly
CPT/HCPCS: 71275; Q9967